=== PATIENT | female | born 1930 | race African-American/Black ===

== ENCOUNTER 2018-11-21 13:49 | Emergency (ER) | payer OTHER, MEDICAID ==
[~2018-11-21] VITALS: Ht 162.6 cm; Wt 87.0 kg
[~2018-11-21 13:49] MED LIST: ASPI-1159; COR3; FAMO20TA8; FERR325T23; OLME1TAB8; SIMV20TA2
[2018-11-21] MEDS ORDERED: TETANUS, DIPHTHERIA, PERTUSSIS VAC/PF 0.5ML (>7YR OLD) IM ONE (14:45)
[2018-11-21] MEDS ORDERED: BACITRACIN ZINC OINT UDPKT TOP ONE (14:45)
[2018-11-21] MEDS ORDERED: LIDOCAINE HCL/PF 1% 10 MG/ML 5ML VIAL IJ ONE (14:45)
[2018-11-21] MEDS ORDERED: ACETAMINOPHEN 325MG TABLET PO ONE (14:45)
[2018-11-21 16:53] VITALS: BP 158/62
== END 2018-11-21 16:55 | disposition home or self-care (01) ==
LOC: ER 13:49
DX: S01.311A Laceration without foreign body of right ear, initial encounter (principal); W01.190A Fall on same level from slipping, tripping and stumbling with subsequent striking against furniture, initial encounter; Y93.89 Activity, other specified; Y92.018 Other place in single-family (private) house as the place of occurrence of the external cause; I10 Essential (primary) hypertension; Z23 Encounter for immunization
CPT/HCPCS: 12011; 70450; 90471; 90715; 99284; J3490

== ENCOUNTER 2018-11-28 10:53 | Emergency (ER) | payer OTHER, MEDICAID ==
[~2018-11-28] VITALS: Ht 162.6 cm; Wt 87.0 kg
[2018-11-28 11:07] VITALS: BP 126/55
== END 2018-11-28 12:14 | disposition home or self-care (01) ==
LOC: ER 11:07
DX: Z48.02 Encounter for removal of sutures (principal)
CPT/HCPCS: 99281